=== PATIENT | female | born 1930 | race Caucasian/White ===

== ENCOUNTER → 2018-04-20 | Outpatient (CLI) | payer OTHER ==
[~2018-04-20] MED LIST: ALTACE5 M1 PO; ASPIRIN325 PO; ASPIRIN81 M2 PO; CARAFATE 1 GM TA1 G1 PO; CEFTIN 250 MG250 MG PO; CENTRUM SILVER1 EAC1 PO; CENTRUM SILVER1 EAC4 PO; DIVIGEL0.5 MG TOP; KETOCONAZOLE60 GM TOP; LIPITOR10 MG PO; MIRALAX255 GM PO; PREVACID 30MG C30 M1 PO; PREVACID15 MG PO; PRILOSEC 20 MG20 MG PO; TRAMADOL-ACETA1 EACH PO; VITAMIN D35000 UNI1 PO
[2018-04-20 10:26] LABS: CREATININE 1.2 mg/dL (0.6-1.0)
== END | disposition home or self-care (01) ==
LOC: CAT 09:40
PROVIDERS: Urology
DX: Z45.2 Encounter for adjustment and management of vascular access device (principal); Z79.82 Long term (current) use of aspirin; Z79.899 Other long term (current) drug therapy

== ENCOUNTER → 2018-11-12 | Outpatient (CLI) | payer OTHER ==
[2018-11-12 14:38] LABS: CALCIUM 9.6 mg/dL (8.5-10.1); POTASSIUM 4.6 mmol/L (3.5-5.1)
--- NOTE | 2018-11-13 08:22 | EKG ---
[place] [address] [employer] [facility] [place] [address] ELECTROCARDIOGRAM REPORT Name: LINNEAMARIO Room #: [facility]Matt[facility] [id number] ������������������ Admission: 11/12/18 ������������������ Attend Phys: Physician not on staff Discharge: ������������������ Date of : 34 Report #: [id number] ����������������������������������������������������������������� [id number] THIS REPORT FOR: //name// [facility] Test Date: 2018-11-12 Test Time: 14:26:50 Pat Name: MARIO YARBROUGH Department: Room: Gender: F Purchasing Analyst: Mery UGALDE : 1930 Requested By: Physician staff Order Number: [id number] MD: Joseph Dennison Measurements Intervals [place] Rate: 74 P: -49 [place]: 144 QRS: -49 QRSD: 81 T: 11 QT: 393 QTc: 436 Interpretive Statements Sinus or ectopic atrial rhythm Left anterior fascicular block Abnormal R-wave progression, late transition Left ventricular hypertrophy Compared to ECG 10/26/2014 15:09:16 Electronically Signed On 11-13-2018 8:22:33 CDT by Joseph Dennison [email or web address] ��������������������������������������������� <ELECTRONICALLY SIGNED> ���������������������������������������� By: Joseph Dennison MD ��������������������������������������������� 11/13/18821 142 142 Joseph Dennison MD /MASTER
== END ==
LOC: CV 13:23
DX: Z01.818 Encounter for other preprocedural examination (principal); I10 Essential (primary) hypertension

== ENCOUNTER → 2020-08-24 | Outpatient (CLI) | payer OTHER ==
[2020-08-24 14:28] LABS: CREATININE 1.2 mg/dL (0.6-1.0)
== END ==
LOC: CAT 10:17
PROVIDERS: ATTEND Specialist
DX: N39.0 Urinary tract infection, site not specified (principal); R39.89 Other symptoms and signs involving the genitourinary system; B95.2 Enterococcus as the cause of diseases classified elsewhere

== ENCOUNTER 2020-10-01 01:30 | Inpatient (IN) | payer OTHER ==
[~2020-10-01] VITALS: Ht 160 cm; Wt 68.9 kg
[2020-10-01] VITALS (7 sets, daily range): BP systolic 103–180; BP diastolic 56–94
[2020-10-01 02:22] LABS: ABSOLUTE NEUTROPHILS 7.2 thou/uL (1.4-8.2); BASOPHILS 0.2 % (0.0-2.0); EOSINOPHILS 0.7 % (0.0-3.0); HEMATOCRIT 39.2 % (37.0-47.0); HEMOGLOBIN 13.1 gm/dL (12.0-15.0); LYMPHOCYTES 9.7 % (24.0-44.0); MCH 31.6 pg (26.0-34.0); MCHC 33.3 g/dL (28.0-37.0); MCV 94.8 fL (80.0-100.0); MONOCYTES 8.5 % (1.0-8.0); PLATELET COUNT 209 thou/uL (150-400); POLYS 80.9 % (36.0-66.0); RBC 4.13 mil/uL (4.20-5.00); RDW 13.2 % (10.5-14.5); WBC 8.9 thou/uL (4.0-11.0)
[2020-10-01 02:26] LABS: CALCIUM 9.1 mg/dL (8.5-10.1); CREATININE 1.4 mg/dL (0.6-1.0); POTASSIUM 4.1 mmol/L (3.5-5.1)
[2020-10-01 02:39] LABS: URINE BILIRUBIN NEGATIVE (Negative); URINE BLOOD 3+ (Negative); URINE CLARITY CLOUDY; URINE COLOR RED; URINE GLUCOSE-RANDOM* TRACE (Negative); URINE KETONES NEGATIVE (Negative); URINE LEUKOCYTES-REFLEX TRACE (Negative); URINE PROTEIN (DIPSTICK) 3+ (Negative); URINE SPECIFIC GRAVITY 1.025 (1.005-1.035); URINE UROBILINOGEN 0.2 E.U./dl (0.2-1.0)
[2020-10-01 02:40] LABS: URINE NITRITE-REFLEX POSITIVE (Negative)
[2020-10-01 02:41] LABS: CASTS None Seen /LPF (None Seen); MUCUS None Seen strn/LPF (None Seen); SQUAMOUS None Seen /LPF (0-3); URINE WBC-REFLEX 0-5 Rare /HPF (0-5)
[2020-10-01 02:42] LABS: BACTERIA-REFLEX 1-9 Few /HPF (None Seen); CRYSTALS None Seen /LPF (None Seen); URINE RBC >20 Many /HPF (0-2)
--- NOTE | 2020-10-01 12:08 | NUR ---
ASSUMED PT CARE UPON TRANSFER TO UNIT AT 0750. PT VSS, A&OX4, PT ABLE TO MAKE NEEDS KNOWN. CONSENTS SIGNED. IV INFUSING WITH FLUIDS MOST RECENTLY ORDERED AFTER CHECKING WITH PHYSICIAN WHICH FLUIDS TO GIVE. DIET ORDERED. PT ON TELE. CONTINUOUS BLADDER IRRIGATION WORKING WELL, RECORDING I&O. REPORTING NO PAIN. BLADDER SCAN SHOWED 100 ML.FALL PRECAUTIONS IN PLACE.
[2020-10-02 05:00] VITALS: BP 139/72
[2020-10-02 05:13] LABS: CALCIUM 8.5 mg/dL (8.5-10.1); CREATININE 1.5 mg/dL (0.6-1.0); POTASSIUM 4.4 mmol/L (3.5-5.1)
[2020-10-02 05:17] LABS: MCH 32.1 pg (26.0-34.0); MCHC 33.3 g/dL (28.0-37.0); MCV 96.4 fL (80.0-100.0); RBC 3.73 mil/uL (4.20-5.00); RDW 13.3 % (10.5-14.5); WBC 4.6 thou/uL (4.0-11.0)
--- NOTE | 2020-10-02 07:45 | NUR ---
ASSUME CARE 1900. PT/VITALS STABLE. INTERMITTENT ABDO PAIN/CRAMPIUNG NOTED. TYLENOL FOR RELIEF. TOLERATES ACTIVITY WELL. ASSESSMENT CHARTED. PROGRESSING WELL WITH POC. PLAN IS TO CONTINUE TO IRRIGATE BLADDER UNTIL LIGHT PIK DRAINAGE IS ACHIEVED. DRAINAGE MOSTLY PINK WITH INTERMITTENT EPISODES OF VERY BLOODY DRAINAGE NOTED. CLOTS NOTED ABOUT TWICE THROUGHOUT THE SHIFT. ABOUT 8000ML INPUT AND [id number] OUT. PRUNE JUICE GIVEN TO PT WITH 2 LOOSE STOOLS NOTED THROUGH THE NIGHT. WILL CONTINUE TO MONITOR AND FOLLOW WITH POC
[2020-10-02 08:47] VITALS: BP 125/66
--- NOTE | 2020-10-02 11:49 | NUR ---
PT ADMITTED RELATED TO HEMATURIA. CM REVIEWED CHART AND SPOKE WITH CARE TEAM. CM MET WITH PT AT BEDSIDE THIS DAY. PT APPEARED TO BE A&O X4. CM ROLE INTRODUCED. PT INDICATED SHE RESIDES IN AN APARTMENT ALONE WITH NO STEPS THAT SHE NEEDS TO USE IF SHE ENTEREST THROUGH THE GARAGE. SHE HAS ELEVATOR ACCESS. PT INDICATED SHE USES A CANE TO ASSIST WITH MOBILITY AT NIGHT TIME. 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 PT INDICATED NO HH HX. PT'S PCP IS DR. DINH. CONTACT IS HER DTR DE[place]INEE. PT INDICATED SHE PLANS TO RETURN HOME ONCE MEDICALLY STABLE. CM TO FOLLOW INDICATED WITH DC PLANNING. PT IS ON IV ABX AND CBI WITH RADHA.
--- NOTE | 2020-10-02 12:53 | NUR ---
Nutrition: pt admitted with lower abdominal pain with urination and bloody urine. Seen due to nsg indication for poor intake and weight loss. PMH: Bladder CA in remission, nephrectomy. Pt eating fairly well, 50-60% of meals so far in hospital. Reports 70# loss over 5 year period-not significant over time frame. 5# of which occurred in the past 6 months. States she attributes it to false teeth. Currently on mechanically altered chopped diet which is working well for pt. Denies offer of ensure supplements. Feels she is doing fine. No significant wasting noted-pt does not meet criteria for severe malnutrition. Consider low nutrition risk.
[2020-10-02 16:10] VITALS: BP 136/61
[2020-10-02 19:31] VITALS: BP 150/90
--- NOTE | 2020-10-02 20:06 | NUR ---
10/02/20 ASSUMMED PT CARE AT 0700. PER UROLOGY, CBI CLAMPED OFF. RESTARTED FOR VERY BRIEF PERIDS THROUGHOUT THE DAY WHEN URINE WAS BRIGHT RED IN COLOR. CBI OFF FOR MAJORITY OF THE DAY. DAUGHTER AT BEDSIDE AND UPDATED. PLAN FOR KIDNEY ULTRASOUND TOMORROW.
[2020-10-02 23:57] VITALS: BP 147/86
[2020-10-03 05:06] LABS: ABSOLUTE NEUTROPHILS 2.7 thou/uL (1.4-8.2); BASOPHILS 0.3 % (0.0-2.0); EOSINOPHILS 10.4 % (0.0-3.0); HEMATOCRIT 34.3 % (37.0-47.0); HEMOGLOBIN 12.1 gm/dL (12.0-15.0); LYMPHOCYTES 23.1 % (24.0-44.0); MCH 33.7 pg (26.0-34.0); MCHC 35.2 g/dL (28.0-37.0); MCV 95.9 fL (80.0-100.0); MONOCYTES 10.5 % (1.0-8.0); PLATELET COUNT 184 thou/uL (150-400); POLYS 55.7 % (36.0-66.0); RBC 3.58 mil/uL (4.20-5.00); RDW 13.4 % (10.5-14.5); WBC 4.9 thou/uL (4.0-11.0)
[2020-10-03 08:00] VITALS: BP 150/86
[2020-10-03 08:16] LABS: CALCIUM 8.6 mg/dL (8.5-10.1); CREATININE 1.2 mg/dL (0.6-1.0); POTASSIUM 4.1 mmol/L (3.5-5.1)
--- NOTE | 2020-10-03 12:11 | NUR ---
CARE TEAM INDICATED THAT PT'S GARCIA HAD BEEN DC'D. PT CONTINUES ON IV CEFTRIAXONE. PT HAD KIDNEY ULTRASOUND THIS DAY. AWAITING RESULTS. CM TO FOLLOW INDICATED WITH DC PLANNING.
[2020-10-03 16:00] VITALS: BP 144/83
--- NOTE | 2020-10-03 16:39 | NUR ---
10/03/20 ASSUMED PATIENT CARE AT 0700. GARCIA DISCONTINUED PER UROLOGY. PATIENT VOIDING VIA BEDSIDE COMMODE. URINE IS YELLOW. DAUGHTER VISITING AND UPDATED AT BEDSIDE. PATIENT IS PROGRESSING TOWARDS GOALS OF CARE. WILL CONTINUE TO MONITOR.
[2020-10-03 19:34] VITALS: BP 154/84
--- NOTE | 2020-10-04 02:08 | NUR ---
PT IS A/O X4 AND IS UP WITH ASSISTANCE TO THE BSC. ROOM AIR. SR/AFIB ON THE MONITOR. NEW ORDER TO STOP TELEMETRY BY CEPHALOMETRIC ANALYST. C/O CONSTIPATION AND REQUESTED PRUNE JUICE. PROVIDED REQUESTED. MEDICATIONS GIVEN DIRECTED PER MAR. VSS. AFEBRILE.FALL PRECAUTIONS IN PLACE, CALL LIGHT IS WITHIN REACH. DENIES ANY C/O PAIN OR DISCOMFORT.WILL CONTINUE TO MONITOR.
[2020-10-04] MEDS ORDERED: TRAMADOL 50 MG50 MG PO (12:27)
[2020-10-04] MEDS ORDERED: CEFUROXIME500 MG PO (12:27)
[2020-10-04] MEDS ORDERED: COLACE 100 MG100 MG PO (12:27)
[2020-10-04] MEDS ORDERED: ACETAMINOPHEN325 M1 PO (12:27)
[2020-10-04] MEDS ORDERED: NORVASC5 MG PO (12:27)
[2020-10-04 12:40] VITALS: BP 154/84
--- NOTE | 2020-10-04 13:50 | NUR ---
CARE TEAM INDICATED THAT PT IS MEDICALLY STABLE TO DC HOME THIS DAY. PT IS TO DC HOME TO SELF CARE. NO FURTHER CM INTERVANTION INDICATED. CASE CLOSED.
--- NOTE | 2020-10-04 16:00 | NUR ---
ASSUMED CARE AT 0700. PATIENT DISCHARGED HOME WITH DAUGHTER AT 1448. PATIENT LEFT WITH DAUGHTER AND ALL BELONGINGS ACCOUNTED FOR.
== END 2020-10-04 14:53 | disposition home or self-care (01) | DRG 690 ==
LOC: ER 01:30 → EROBS 04:36 → 4W 04:36
PROVIDERS: Emergency Medicine; Internal Medicine; Physician Assistant; Specialist; ADMIT Internal Medicine; ATTEND Internal Medicine
DX: N13.6 Pyonephrosis (principal); N17.9 Acute kidney failure, unspecified; Z20.822 Contact with and (suspected) exposure to COVID-19; I10 Essential (primary) hypertension; R31.0 Gross hematuria; N32.9 Bladder disorder, unspecified; Z60.2 Problems related to living alone; R53.81 Other malaise; F32.9 Major depressive disorder, single episode, unspecified; R63.4 Abnormal weight loss; Z90.710 Acquired absence of both cervix and uterus; Z90.5 Acquired absence of kidney; Z85.51 Personal history of malignant neoplasm of bladder; Z88.1 Allergy status to other antibiotic agents; Z79.82 Long term (current) use of aspirin; Z79.899 Other long term (current) drug therapy; Z90.49 Acquired absence of other specified parts of digestive tract; Z68.26 Body mass index [BMI] 26.0-26.9, adult
CPT/HCPCS: 10045